=== PATIENT | male | born 1955 | race Caucasian/White ===

== ENCOUNTER 2019-02-21 14:14 | Emergency (ER) | payer BC ==
[2019-02-21] MEDS ORDERED: methylPREDNISolone 125 MG* 2 ML VIAL IM ONE (14:36)
[2019-02-21] MEDS ORDERED: EPINEPHRINE 1 MG/ML 1 ML VIAL IM ONE (14:37)
--- NOTE | 2019-02-21 14:44 | UC ---
Allergic Reaction HPI - HPI Summary HPI Summary: Patient was stung by a jellow jacket at 1300, took 50 of benadryl 1 hour ago. now has hives and feels like there is a pill stuck in his throat. he is talking without difficulty,. states that his voince sound different to her. - History of Current Complaint Stated Complaint: BEE STING Hx Obtained From: Patient Onset/Duration: Sudden Onset, Lasting Hours - 1 Severity Initially: Mild Severity Currently: Moderate Character: Swelling, Pruritus, Hives Associated Signs And Symptoms: Positive: Rash - Related Hx Possible Reaction To: Insect - Allergies/Home Medications Allergies/Adverse Reactions: Allergies Allergy/AdvReac Type Severity Reaction Status Date / Time No Known Allergies Allergy Verified 09/25/13 12:00 Home Medications: Home Medications Pravastatin Sodium 40 mg PO DAILY 02/21/19 [History Confirmed 02/21/19] Review of Systems All Other Systems Reviewed And Are Negative: Yes Skin: Positive: Rash Respiratory: Positive: Other - lump in throat Is Patient Immunocompromised?: No Physical Exam Triage Information Reviewed: Yes Appearance: Well-Nourished, Ill-Appearing, Pain Distress Vital Signs Reviewed: Yes Eye Exam: Normal ENT: Positive: Pharyngeal erythema - mild swelling of the throat, able to breath and talke Dental Exam: Normal Neck exam: Normal Respiratory Exam: Normal Respiratory: Positive: Chest non-tender, Lungs clear, Normal breath sounds Cardiovascular Exam: Normal Cardiovascular: Positive: RRR, No Murmur, Pulses Normal Abdominal Exam: Normal Bowel Sounds: Positive: Present Musculoskeletal Exam: Normal Neurological Exam: Normal Psychological Exam: Normal Skin Exam: Normal Re-Evaluation - Re-Evaluation First Eval Change: Improved - throat has improved, feeling better. hives present still Second Eval Change: Improved - VS stable. throat is clear and hives have cleared excpt for under his arms Allergic Reaction Course/Dx - Course Course Of Treatment: history obtained, exam performed ,meds reviewed, treated for allergic reaction. patient took benadryl prior to arrival. IV placea nd solumedrol and epinephrine given IM. Patient remains alert and oriented, never complained of SOB. Patient did improve with treatment, hives are gone at departure and swelling in the throat has decreased, VS remain stable - Differential Dx/Diagnosis Differential Diagnosis/HQI/PQRI: Anaphylaxis, Local Allergic Reaction, Urticaria Provider Diagnosis: Allergic reaction to bee sting Discharge - Sign-Out/Discharge Documenting (check all that apply): Patient Departure All imaging exams completed and their final reports reviewed: No Studies - Discharge Plan Condition: Stable Disposition: HOME Prescriptions: EPINEPHrine [Auvi-Q] 0.3 mg INJ SEE INSTRUCTIONS #1 auto.injct Famotidine TAB* [Pepcid 20 MG TAB*] 20 mg PO BID #14 tab predniSONE [Prednisone 20 MG TAB] 20 mg PO DAILY #18 tablet Patient Education Materials: General Allergic Reaction (ED) Referrals: Kriss Beltran NP [Primary Care Provider] - Additional Instructions: 1.take the medication as prescribed. 2. I would take another dose of benadryl tonight at 9 pm. 3. if you develop any increased throat difficultly report to ER> 4. I prescribed an epi pen for you in case of any other reaction - Billing Disposition and Condition Condition: STABLE Disposition: Home
[2019-02-21] MEDS ORDERED: Famotidine TAB* 20 MG PO ONE (15:09)
[2019-02-21 19:40] VITALS: BP 148/82
== END 2019-02-21 16:05 | disposition home or self-care (01) ==
LOC: UCCORT 14:14
DX: T63.441A Toxic effect of venom of bees, accidental (unintentional), initial encounter (principal); L50.9 Urticaria, unspecified; Y92.9 Unspecified place or not applicable
CPT/HCPCS: 96372; 99203; A9270-GY; G0463; J2930